=== PATIENT | female | born 1990 | race Caucasian/White ===

== ENCOUNTER → 2017-04-03 12:50 | Observation (INO) ==
[2017-04-03 09:44] LABS: Bilirubin,Urine Negative (Negative); Blood,Urine Negative (Negative); Clarity,Urine Cloudy (Clear); Color,Urine Dark Yellow (Yellow); Glucose,Urine (UA) Normal (Normal); Ketones,Urine Trace mg/dL (Negative); Leukocyte Esterase,Urine Small (Negative); Nitrite,Urine Negative (Negative); Protein,Urine 30 mg/dL (Neg-Trace); Specific Gravity,Urine 1.029 (1.010-1.025); Urobilinogen,Urine Normal (Normal)
[2017-04-03 09:46] LABS: Hyaline Casts,Urine Few per lpf (None-Few); Squamous Epithelial Cell,Urine Many per lpf (None-Few)
[2017-04-03 09:58] LABS: Bacteria,Urine Many per hpf (None-Few); RBC,Urine 0-3 per hpf (0-3)
[2017-04-03 09:59] LABS: Calcium Oxalate Crystals,Urine Present
[2017-04-03 10:58] LABS: Basophils % 0.3 %; Eosinophils # 0.1 K/mcL (0.0-0.6); Eosinophils % 0.5 %; Hematocrit 35.3 % (35.3-44.9); Hemoglobin 12.1 g/dL (11.5-15.4); Immature Granulocytes % 0.7 % (0-4); Lymphocytes # 2.4 K/mcL (0.6-4.6); Lymphocytes % 15.2 %; Mean Corpuscular HGB Conc 34.3 g/dL (31.6-35.5); Mean Corpuscular Hemoglobin 32.4 pg (28.0-33.3); Mean Corpuscular Volume 94.4 fL (83.0-100.0); Monocytes # 0.9 K/mcL (0.0-1.3); Monocytes % 5.5 %; Neutrophils # 12.2 K/mcL (1.6-8.9); Platelet Count 248 K/mcL (140-400); Red Blood Count 3.74 M/mcL (3.82-4.97); Red Cell Distribution Width 12.9 % (11.5-14.5); Segmented Neutrophils % 77.8 %
[2017-04-03 11:07] LABS: Alanine Aminotransferase 23 Units/L (0-55); Aspartate Amino Transferase 20 Units/L (5-34); BUN/Creatinine Ratio 11 (6-26); Blood Urea Nitrogen 7 mg/dL (7-20); Uric Acid 3.9 mg/dL (2.6-6.0); eGFR For African Americans > 60 (> 60); eGFR For Non-African Americans > 60 (> 60)
[2017-04-03 11:08] LABS: Lactate Dehydrogenase 158 Units/L (159-327)
[2017-04-03 11:37] LABS: Trichomonas DNA Not Detected (Not Detect)
[2017-04-03 11:38] LABS: Candida DNA Not Detected (Not Detect); Gardnerella DNA Not Detected (Not Detect)
--- NOTE | 2017-04-03 12:34 | Discharge Summary ---
Date of Encounter: 04/03/17 Time of Encounter: 10:30 - Discharge Diagnosis (1) Decreased movement Priority: Primary Status: Acute Comments: Patient states movement has been decreased since 5 in the evening yesterday. She denies vaginal bleeding, cramping, headache, epigastric pain, visual disturbances, and headache. She states she had a single gush of fluid yesterday, but has not had any vaginal discharge since. She state she has had a decreased appetite, but believes she is eating a drinking enough. She denies having difficulty obtaining food. She states she had pre-eclampsia in her previous that presented between 30 and 32 weeks. Urinalysis - dehydration NST - reactive for gestational age after IV hydration and po food intake Patient states movement has increased since she has been in. Discharge home with labor precautions, PIH precautions, and decreased movement precautions F/U in office with appointment scheduled tomorrow - Ultrasound ordered tomorrow for DARIO and presentation Qualifiers: Fetus number: single or unspecified fetus Trimester: third trimester Qualified Code(s): O36.8130 - Decreased movements, third trimester, not applicable or unspecified (2) 30 weeks gestation of Priority: Secondary Status: Acute Comments: Follow up with Dr Estevez tomorrow for 30 week . Added on ultrasound for presentation and DARIO for unable to palpate position (3) History of pre-eclampsia in prior , currently Priority: Secondary Status: Acute Comments: Increased protein on urinalysis. Pre-E labs WNL Normal blood pressures (4) Vaginal discharge Priority: Secondary Status: Acute Comments: Patient c/o moderate gush of clear fluid yesterday afternoon. Vaginosis panel WNL. - Discharge Medications Home Medications: Aspirin 81 mg PO DAILY 11/20/16 [History] Pnv with Ca,No.72/Iron/FA [Pnv Plus Multivit Tab] 1 tab PO DAILY [History] Zantac 75 1 / PO BID 04/03/17 [History] Allergies/Adverse Reactions: 3 Allergy/AdvReac Type Severity Reaction Status Date / Time No Known Allergies Allergy Verified 10/11/16 08:34 Data Procedures and tests throughout hospitalization: Laboratory Tests 04/03/17 04/03/17 04/03/17 09:36 10:40 10:40 WBC 15.7 H RBC 3.74 L Hgb 12.1 Hct 35.3 MCV 94.4 MCH 32.4 MCHC 34.3 RDW 12.9 Plt Count 248 MPV 11.0 Immature Gran % 0.7 Seg Neutrophils % 77.8 Lymphocytes % 15.2 Monocytes % 5.5 Eosinophils % 0.5 Basophils % 0.3 Neutrophils # 12.2 H Lymphocytes # 2.4 Monocytes # 0.9 Eosinophils # 0.1 Basophils # 0.0 BUN 7 Creatinine 0.64 Est GFR ( Amer) > 60 Est GFR (Non-Af Amer) > 60 BUN/Creatinine Ratio 11 Uric Acid 3.9 AST 20 ALT 23 Lactate Dehydrogenase 158 L Urine Color Dark Yellow Urine Clarity Cloudy A Urine pH 6.0 Ur Specific [place] 1.029 H Urine Protein 30 H Urine Glucose (UA) Normal Urine Ketones Trace H Urine Blood Negative Urine Nitrite Negative Urine Bilirubin Negative Urine Urobilinogen Normal Ur Leukocyte Esterase Small H Urine Microscopic RBC 0-3 Urine Microscopic WBC 5-15 H Ur Squamous Epith Cells Many H Calcium Oxalate Crystal Present Urine Bacteria Many H Hyaline Casts Few Ur Culture Indicated? YES A Chaya species DNA Gardnerella DNA Probe Trichomonas DNA Probe 04/03/17 10:40 WBC RBC Hgb Hct MCV MCH MCHC RDW Plt Count MPV Immature Gran % Seg Neutrophils % Lymphocytes % Monocytes % Eosinophils % Basophils % Neutrophils # Lymphocytes # Monocytes # Eosinophils # Basophils # BUN Creatinine Est GFR ( Amer) Est GFR (Non-Af Amer) BUN/Creatinine Ratio Uric Acid AST ALT Lactate Dehydrogenase Urine Color Urine Clarity Urine pH Ur Specific Shandon Urine Protein Urine Glucose (UA) Urine Ketones Urine Blood Urine Nitrite Urine Bilirubin Urine Urobilinogen Ur Leukocyte Esterase Urine Microscopic RBC Urine Microscopic WBC Ur Squamous Epith Cells Calcium Oxalate Crystal Urine Bacteria Hyaline Casts Ur Culture Indicated? Chaya species DNA Not Detected Gardnerella DNA Probe Not Detected Trichomonas DNA Probe Not Detected Labs on day of discharge: Labs from last 24 hours 04/03/17 04/03/17 04/03/17 10:40 10:40 10:40 WBC 15.7 H RBC 3.74 L Hgb 12.1 Hct 35.3 MCV 94.4 MCH 32.4 MCHC 34.3 RDW 12.9 Plt Count 248 MPV 11.0 Immature Gran % 0.7 Seg Neutrophils % 77.8 Lymphocytes % 15.2 Monocytes % 5.5 Eosinophils % 0.5 Basophils % 0.3 Neutrophils # 12.2 H Lymphocytes # 2.4 Monocytes # 0.9 Eosinophils # 0.1 Basophils # 0.0 BUN 7 Creatinine 0.64 Est GFR ( Amer) > 60 Est GFR (Non-Af Amer) > 60 BUN/Creatinine Ratio 11 Uric Acid 3.9 AST 20 ALT 23 Lactate Dehydrogenase 158 L Urine Color Urine Clarity Urine pH Ur Specific [place] Urine Protein Urine Glucose (UA) Urine Ketones Urine Blood Urine Nitrite Urine Bilirubin Urine Urobilinogen Ur Leukocyte Esterase Urine Microscopic RBC Urine Microscopic WBC Ur Squamous Epith Cells Calcium Oxalate Crystal Urine Bacteria Hyaline Casts Ur Culture Indicated? Chaya species DNA Not Detected Gardnerella DNA Probe Not Detected Trichomonas DNA Probe Not Detected 04/03/17 09:36 WBC RBC Hgb Hct MCV MCH MCHC RDW Plt Count MPV Immature Gran % Seg Neutrophils % Lymphocytes % Monocytes % Eosinophils % Basophils % Neutrophils # Lymphocytes # Monocytes # Eosinophils # Basophils # BUN Creatinine Est GFR ( Amer) Est GFR (Non-Af Amer) BUN/Creatinine Ratio Uric Acid AST ALT Lactate Dehydrogenase Urine Color Dark Yellow Urine Clarity Cloudy A Urine pH 6.0 Ur Specific [place] 1.029 H Urine Protein 30 H Urine Glucose (UA) Normal Urine Ketones Trace H Urine Blood Negative Urine Nitrite Negative Urine Bilirubin Negative Urine Urobilinogen Normal Ur Leukocyte Esterase Small H Urine Microscopic RBC 0-3 Urine Microscopic WBC 5-15 H Ur Squamous Epith Cells Many H Calcium Oxalate Crystal Present Urine Bacteria Many H Hyaline Casts Few Ur Culture Indicated? YES A Chaya species DNA Gardnerella DNA Probe Trichomonas DNA Probe Date of admission: 04/03/17 09:09 Discharging clinician: Kiersten Napoles Anticipated date of discharge: 04/03/17 - Patient Status Disposition: Home, Self-Care Condition: Good Functional capacity at discharge: independent ambulation Overall status at discharge: patient is back to baseline - Discharge Instructions Follow Up With: Rancho Estevez MD [Partnered Physician] - - Diet and Activity Activity: resume usual activities as tolerated Diet: regular diet Hospital Course DIRECTOR OF MANAGED SERVICES Time Attestation: Total time spent providing and/or coordinating discharge services: Exam - Constitutional General appearance IM: cooperative, A&O X 3, pleasant - Respiratory Respiratory exam: Present: CTAB - Cardiovascular Cardiovascular exam IM: Present: RRR, +S2 - GI/Abdominal GI/Abdominal exam IM: normal bowel sounds, soft - Additional comments: uterus appropriate for gestation and soft. FHTs 140 with moderate variability and 10 x 10 accels, no decels No contractions per monitor, patient report, or palpation. - Extremities Exam Extremities exam IM: Present: normal capillary refill, normal inspection, radial pulses palpable and symmetrical - Neurological Exam Neurological exam: alert, oriented X3, reflexes normal - VTE Reasons for not Prescribing Prophylaxis: Treatment not Indicated - Low risk for VTE
[~2017-04-03 12:50] MED LIST: Ringers Solution, Lactated 1,000 ML IVC ONE; Ringers Solution, Lactated 2,000 ML ONE
== END | disposition home or self-care (01) ==
LOC: 1NENULAB
PROVIDERS: ADMIT Obstetrics & Gynecology; ATTEND Obstetrics & Gynecology

== ENCOUNTER → 2017-05-02 13:27 | Observation (INO) ==
[2017-05-02 12:14] LABS: Basophils % 0.2 %; Eosinophils # 0.1 K/mcL (0.0-0.6); Eosinophils % 0.8 %; Hematocrit 34.3 % (35.3-44.9); Hemoglobin 11.8 g/dL (11.5-15.4); Immature Granulocytes % 0.7 % (0-4); Lymphocytes # 2.7 K/mcL (0.6-4.6); Lymphocytes % 16.5 %; Mean Corpuscular HGB Conc 34.4 g/dL (31.6-35.5); Mean Corpuscular Hemoglobin 31.8 pg (28.0-33.3); Mean Corpuscular Volume 92.5 fL (83.0-100.0); Mean Platelet Volume 10.7 fL (9.4-12.4); Monocytes % 6.2 %; Neutrophils # 12.1 K/mcL (1.6-8.9); Platelet Count 259 K/mcL (140-400); Red Blood Count 3.71 M/mcL (3.82-4.97); Red Cell Distribution Width 12.7 % (11.5-14.5); Segmented Neutrophils % 75.6 %
[2017-05-02 12:16] LABS: Amphetamine Screen,Urine Negative ng/mL (Cutoff=1000); Barbiturate Screen,Urine Negative ng/mL (Cutoff=200); Benzodiazepines Screen,Urine Negative ng/mL (Cutoff=200); Cannabinoid Screen,Urine Negative ng/mL (Cutoff = 50); Cocaine Screen,Urine Negative ng/mL (Cutoff= 300); Opiate Screen,Urine Negative ng/mL (Cutoff=300); Phencyclidine Screen,Urine Negative ng/mL (Cutoff=25)
[2017-05-02 12:18] LABS: Protein/Creatinine Ratio,Urine 0.13 mg/mg (0-0.20)
[2017-05-02 12:24] LABS: Alanine Aminotransferase 14 Units/L (0-55); Aspartate Amino Transferase 13 Units/L (5-34); BUN/Creatinine Ratio 10 (6-26); Blood Urea Nitrogen 6 mg/dL (7-20); Lactate Dehydrogenase 123 Units/L (159-327); Uric Acid 3.9 mg/dL (2.6-6.0); eGFR For African Americans > 60 (> 60); eGFR For Non-African Americans > 60 (> 60)
--- NOTE | 2017-05-02 12:59 | OB/GYN Progress Note ---
Date of Encounter: 05/02/17 Time of Encounter: 12:52 - Assessment and Plan (1) 34 weeks gestation of Current Visit: Yes Status: Acute (2) Headache in , antepartum Current Visit: Yes Status: Acute PIH labs negative, symptoms are improving. Discussed PIH precautions with patient, will discharge home with fiorecet, and when to return to [facility] or call provider instructions. Subjective - Subjective Interval history: 34+2 Pt sent from office for PIH evaluation. Normotensive, but has had a headache, blurry vision and epigastric pain since last night. Pt states headache has improved since being in triage and has no more epigastric pain. Reports good movement, denies, vaginal bleeding or leaking of fluid. Antepartum ROS: new complaints, movement normal, no loss of fluid, no vaginal bleeding, no contractions Objective - Vital Signs Vital Signs: Intake and Output 05/01/17 05/02/17 05/02/17 23:59 07:59 15:59 Other: Weight 119.522 kg Patient Weight 05/02/17 23:59 Weight 119.522 kg - Exam FHR: auscultation normal FHR comments: Baseline 135 Auscultation: bilateral: normal Abdomen: Present: soft, gravid Uterus: Present: normal Comments: +1 DTR, -clonus - Labs Labs: Abnormal lab results WBC 16.0 K/mcL (4.3-11.1) H 05/02/17 11:55 RBC 3.71 M/mcL (3.82-4.97) L 05/02/17 11:55 Hct 34.3 % (35.3-44.9) L 05/02/17 11:55 Neutrophils # 12.1 K/mcL (1.6-8.9) H 05/02/17 11:55 BUN 6 mg/dL (7-20) L 05/02/17 11:55 Lactate Dehydrogenase 123 Units/L (159-327) L 05/02/17 11:55
== END | disposition home or self-care (01) ==
LOC: 1NENULAB
PROVIDERS: ADMIT Obstetrics & Gynecology; ATTEND Obstetrics & Gynecology

== ENCOUNTER → 2017-06-02 21:48 | Observation (INO) ==
--- NOTE | 2017-06-02 21:54 | Discharge Summary ---
Date of Encounter: 06/02/17 Time of Encounter: 21:54 - Discharge Diagnosis (1) 38 weeks gestation of Priority: Primary Status: Acute Comments: admitted for labor evaluation false labor (2) NST (non-stress test) reactive on surveillance Priority: Secondary Status: Acute Comments: baseline 145 bpm moderate variability +15x15 accels no decels noted. No contractions - Discharge Medications Home Medications: Aspirin 81 mg PO DAILY 11/20/16 [History] Pnv with Ca,No.72/Iron/FA [Pnv Plus Multivit Tab] 1 tab PO DAILY [History] Zantac 75 150 mg PO BID 04/03/17 [History] Colace 06/02/17 [History] Allergies/Adverse Reactions: 3 Allergy/AdvReac Type Severity Reaction Status Date / Time No Known Allergies Allergy Verified 06/02/17 21:34 Date of admission: 06/02/17 20:03 Discharging clinician: Terri Booth Anticipated date of discharge: 06/02/17 - Patient Status Disposition: Home, Self-Care Condition: Good Functional capacity at discharge: independent ambulation - Discharge Instructions Follow Up With: Rancho Estevez MD [Partnered Physician] - Additional Instructions: LABOR AND DELIVERY DISCHARGE INSTRUCTIONS Signs and Symptoms to be Reported to your Doctor Immediately: * Sudden gush, continuous or intermittent lead of fluid from vagina (note the time of gush and color of fluid) * Onset of bright red vaginal bleeding with or without pain (if you had a vaginal exam during this visit you may notice some dark red spotting. This is normal.) * Contractions that are 5 minutes apart (from the beginning of one contraction to the beginning of the next) and last 45-60 seonds; contractions that you can no longer walk, talk or laugh through. * A change in the baby's activity. This could be an increase or decrease in activity. * Severe headache which does not go away with tylenol. * Sudden swelling in the face, hands, arms and/or legs. * Upper abdominal pain - sometimes associated with heartburn or nausea and is not relieved by Maalox, Mylanta or Tums. * Kick Counts __ One hour after a meal, lay down on one side in a quiet place. Count the number of time the baby moves during an hour. If less than 6 movements, notify your physician Diet: *Force fluids, 8 to 10 tall glasses of fluid per day - may include popsicles and jello *Limit caffeine - this includes chocolate, coffee, tea, any soft drink containing such as all penelope, Rex Yellow and Mountain Dew Follow-up with on 06/03/17 as scheduled. 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 Time Attestation: Total time spent providing and/or coordinating discharge services: Time Spent: Less than 30 minutes Exam - Other Additional findings: Patient seen and assessed by RN. FHR 145 bpm moderate variability +15x15 accels no decels noted. Cat. 1 tracing. No contractions noted. Reactive nst SVE per 1cm with no change after 1 hour of monitoring. - VTE Reasons for not Prescribing Prophylaxis: Treatment not Indicated - Low risk for VTE
[2017-06-02 22:28] LABS: Amphetamine Screen,Urine Negative ng/mL (Cutoff=1000); Barbiturate Screen,Urine Negative ng/mL (Cutoff=200); Benzodiazepines Screen,Urine Negative ng/mL (Cutoff=200); Cannabinoid Screen,Urine Negative ng/mL (Cutoff = 50); Cocaine Screen,Urine Negative ng/mL (Cutoff= 300); Opiate Screen,Urine Negative ng/mL (Cutoff=300); Phencyclidine Screen,Urine Negative ng/mL (Cutoff=25)
== END | disposition home or self-care (01) ==
LOC: 1NENULAB
PROVIDERS: ADMIT Obstetrics & Gynecology; ATTEND Obstetrics & Gynecology

== ENCOUNTER 2017-06-07 07:49 | Inpatient (IN) ==
[2017-06-07] MEDS ORDERED: FLUARIX QUAD 2017-18 36MOS UP/PF 0.5 ML SYRINGE IM ONE (08:33)
[2017-06-07] MEDS ORDERED: Famotidine 20 MG/2 ML VIAL IVP PRN (08:47)
[2017-06-07] MEDS ORDERED: Metoclopramide 10 MG/2 ML VIAL IVP PRN (08:47)
[2017-06-07] MEDS ORDERED: Naloxone 0.4 MG/ML INJ IVP PRN (08:47)
[2017-06-07 08:56] LABS: Basophils % 0.2 %; Eosinophils # 0.1 K/mcL (0.0-0.6); Eosinophils % 0.8 %; Hematocrit 33.1 % (35.3-44.9); Hemoglobin 11.9 g/dL (11.5-15.4); Immature Granulocytes % 0.6 % (0-4); Immature Platelets 5.6 % (1.1-6.1); Lymphocytes # 2.7 K/mcL (0.6-4.6); Lymphocytes % 20.9 %; Mean Corpuscular Hemoglobin 33.3 pg (28.0-33.3); Mean Corpuscular Volume 92.7 fL (83.0-100.0); Mean Platelet Volume 11.2 fL (9.4-12.4); Monocytes # 0.5 K/mcL (0.0-1.3); Monocytes % 4.1 %; Neutrophils # 9.3 K/mcL (1.6-8.9); Platelet Count 253 K/mcL (140-400); Red Blood Count 3.57 M/mcL (3.82-4.97); Red Cell Distribution Width 13.2 % (11.5-14.5); Segmented Neutrophils % 73.4 %
[2017-06-07] MEDS: Ringers Solution, Lactated 1,000 ML IVC SCH ×2 (09:00→16:33)
[2017-06-07 09:09] LABS: Amphetamine Screen,Urine Negative ng/mL (Cutoff=1000); Barbiturate Screen,Urine Negative ng/mL (Cutoff=200); Benzodiazepines Screen,Urine Negative ng/mL (Cutoff=200); Cannabinoid Screen,Urine Negative ng/mL (Cutoff = 50); Cocaine Screen,Urine Negative ng/mL (Cutoff= 300); Opiate Screen,Urine Negative ng/mL (Cutoff=300); Phencyclidine Screen,Urine Negative ng/mL (Cutoff=25)
[2017-06-07] MEDS ORDERED: miSOPROStol 25 MCG TABLET VG PRN (09:39)
--- NOTE | 2017-06-07 09:43 | OB/GYN History & Physical ---
Date of Encounter: 06/07/17 Time of Encounter: 09:41 Assessment and Plan (1) 39 weeks gestation of Current visit: Yes Status: Acute Patient with history of preeclampsia in previous now full-term C with induction of labor with Cytotec. Currently blood pressures are good and she has no signs or symptoms of preeclampsia (2) History of pre-eclampsia in prior , currently Current visit: No Status: Acute History of Present Illness Chief complaint: Here for induction HPI: Ms. Quiroz is a 27 year old female admitted 2 para 1 female at 39-3/7 weeks gestation presents for induction of labor. risk for incompetent by hyperemesis early in and she did have tachycardia which are related to dehydration. Of note patient does have history of prior delivery at 32 weeks for preeclampsia. Arrival she reports irregular contractions no bleeding or leakage of fluid Past Med Surg Social Fam HX - Past Medical History Source: patient, old records reviewed Medical history: no medical history, other (Knee problems) Psychiatric history: no psych history - Past Surgical History Surgical History: other - Social History Smoking Status: Former smoker Smokeless Tobacco Status: No Alcohol use: none Drug use: none - Family History Father Adopted: No Living Status: Still Living Hx Family Cardiac Disorders: Yes (htn) Hx Family Respiratory Disorders: No Hx Family Cancer: No Hx Family GI Disorders: No Hx Family Genitourinary Disorders: No Hx Family Endocrine Disorder: No Hx Family Musculoskeletal Disorders: No Hx Family Neuromuscular Disorders: No Hx Family Neurologic Disorders: No Hx Family HEENT Disorders: No Hx Family Autoimmune Disorders: No Hx Family Reproductive Disorders: No Hx Family Psychosocial Disorders: No Hx Family Medical Disorders: No Obstetrical History - Pregnancies : 2 Medications and Allergies Aspirin 81 mg PO DAILY 11/20/16 [History] Pnv with Ca,No.72/Iron/FA [Pnv Plus Multivit Tab] 1 tab PO DAILY [History] Zantac 75 150 mg PO DAILY 04/03/17 [History] Colace 1 tab PO DAILY 06/02/17 [History] 3 Allergy/AdvReac Type Severity Reaction Status Date / Time No Known Allergies Allergy Verified 06/07/17 08:31 Exam - Constitutional Constitutional: well developed, well nourished, no acute distress - HEENT HEENT: EOMI, PERRL - Neck Neck exam: full ROM - Lungs Respiratory exam: CTAB - Cardiovascular Cardiovascular exam: RRR - Abdomen Abdomen: Present: bowel sounds normal, gravid - Extremities Extremities exam: full ROM Deep Tendon Reflex Grade: 2+ Normal - Cervix Dilation: 2 Effacement: 70 Station: -2 Results Result Diagrams: 06/07/17 08:25 Abnormal lab results WBC 12.7 K/mcL (4.3-11.1) H 06/07/17 08:25 RBC 3.57 M/mcL (3.82-4.97) L 06/07/17 08:25 Hct 33.1 % (35.3-44.9) L 06/07/17 08:25 MCHC 36.0 g/dL (31.6-35.5) H 06/07/17 08:25 Neutrophils # 9.3 K/mcL (1.6-8.9) H 06/07/17 08:25 All other labs normal. - VTE Reasons for not Prescribing Prophylaxis: Treatment not Indicated - Low risk for VTE
[2017-06-07] MEDS ORDERED: *HR* Nalbuphine 20 MG/ML AMPUL IVP PRN (14:09)
--- NOTE | 2017-06-07 14:11 | OB Labor Progress Note ---
Date of Encounter: 06/07/17 Time of Encounter: 14:09 Labor Progress Note - Subjective Subjective: Pt reports freq uc's that are getting stronger. - Cervix Cervix: 3/80/-2 - Heart Tones Heart Tones: RNST - [place]: uc's q 3 min - Interventions Interventions: AROM clear - Plan Plan: Expect
[2017-06-07] MEDS ORDERED: Ondansetron 4 MG/2 ML VIAL IVP PRN (15:39)
[2017-06-07] MEDS ORDERED: Epidural Premix (fent/bupiv) 110 ML EP ONE (17:52)
--- NOTE | 2017-06-07 19:07 | Anesthesia Evaluation PreOp ---
Date of Encounter: 06/07/17 Time of Encounter: 17:30 - Past History Planned Operation: manuela Cardiac History: Denies any Significant Hx Pulmonary History: Denies Any Significant HX PRESSURE TEST OPERATOR History: Denies Any Significant HX Other Medical History: Denies Any Significant HX Anesthesia History: No Prior Anesthetic Complications : Yes Test: Positive Alcohol Use: none Drug use: none Medications and Allergies Aspirin 81 mg PO DAILY 11/20/16 [History] Pnv with Ca,No.72/Iron/FA [Pnv Plus Multivit Tab] 1 tab PO DAILY [History] Zantac 75 150 mg PO DAILY 04/03/17 [History] Colace 1 tab PO DAILY 06/02/17 [History] 3 Allergy/AdvReac Type Severity Reaction Status Date / Time No Known Allergies Allergy Verified 06/07/17 08:31 - Meds/Allergy Pre-op Review Medications Reviewed: Yes Allergies Reviewed: Yes Beta Blockers on Current Med List: No Anesthesia Results - Labs 06/07/17 08:25 Anesthesia Exam - HEENT Pupil (Motor): Pupils equal Mallampati: I Teeth: Normal Oral Opening: Greater than 3 - PRESSURE TEST OPERATOR LOC: Oriented PRESSURE TEST OPERATOR Motor: Normal RUE, Normal LUE, Normal RLE, Normal LLE, Normal Face PRESSURE TEST OPERATOR Sensory: Normal: RUE, LUE, RLE, LLE, Face - Cardiac JVD: No Carotid Bruit: No - Pulmonary Breath Sounds: bilateral Clear Respiratory Effort: Symmetrical Anesthesia Assess/Plan ASA Score: 2 Modified Calvin Scale for Level of Consciousness: Cooperative, oriented, and tranquil Anesthetic Plan: Regional Autologous Blood: No Monitoring Plan: Standard Monitors
--- NOTE | 2017-06-07 19:08 | Anesthesia Procedures ---
Date of Encounter: 06/07/17 Time of Encounter: 17:30 Procedures: Anesthesia - Epidural/Spinal Patient ID/Chart reviewed: Yes Patient examined: Yes OB Eval: Gestational age: 39.3 OB Eval: : 2 OB Eval: Hx Para: 1 OB Eval: Dilated at (cm): 5 OB Eval: Contractions: Non-stressed pattern Consent Obtained: Yes Supplemental Oxygen: None/Room Air Site Prep: Aseptic Technique, Sterile prep and drape, Povidone-Iodine 1% Patient position: upright Local Anesthetic: Lidocaine 1% Amount of Local Anesthetic used: 3 Touhy Needle Gauge: 18 Touhy Needle Depth (cm): 5 Catheter Depth at Skin (cm): 7 Test Dose (1.5% Lido + Epi): Volume given (mls): 3 Test Dose Result: Negative Loading Dose Administered: Thru Catheter Infusion Rate (mls/hr): [address]: Tegaderm, Tape Interspace Used: L4-L5 Loss of Resistance (BALTA): Yes Blood: No CSF: No Paresthesia: No Vitals + FHT's: stable
[2017-06-07] MEDS ORDERED: Epidural Premix (fent/bupiv) 110 ML EP SCH (19:15)
[2017-06-07] MEDS ORDERED: Oxytocin 20 units/ LR 1000 mL 20 UNIT/1,000 ML BAG IVC SCH (20:00)
[2017-06-07] MEDS ORDERED: Oxytocin 20 units/ LR 1000 mL 20 UNIT/1,000 ML BAG IVC ONE (20:06)
[2017-06-07] MEDS ORDERED: *HR* FentaNYL (PF) 100 MCG/2 ML VIAL ONE (22:50)
[2017-06-08] MEDS ORDERED: Lidocaine 1% 20 ML MDV ONE (00:37)
--- NOTE | 2017-06-08 01:03 | OB/GYN Procedure Note ---
Delivery - Delivery Date: 06/08/17 Provider: Rancho Estevez Intrapartum events: none Delivery induction: misoprostol Delivery monitor: external FHT, internal uterine Anesthesia: local, epidural Estimated Blood Loss: 400 - Infant (s) Infant A Delivery Date: 06/08/17 Delivery Time: 00:33 Presentation: vertex Position: JOSE Route of delivery: Gender: Female Viability: Viable Pounds: 7 Ounces: 4 at 1 minute: 8 at 5 mins: 9 Shoulder Dystocia: not encountered Specimens collected: cord blood Placenta: spontaneous Cord: nuchal cord, 3 umbilical vessels - Repair Episiotomy: none Laceration Description: Labial (right,), Superficial - Complications Delivery complications: none - Disposition Mom disposition: stable in LDR disposition: stable in LDR - Comments Comments: Pt s/p of liveborn female through nuchal cord. Cord then reduced. Spontaneous delivery of normal placenta that appeared to be intact and had 3 vc. Rt labial tear and small superficial perineal tear repaired under epidural and local with interrupted 3-0 vicryl. Pt did have some uterine atony that responded to fundal massage and pitocin bolus. EBL 400 CC.
[2017-06-08] MEDS ORDERED: Oxytocin 20 units/ LR 1000 mL 20 UNIT/1,000 ML BAG IVC SCH (02:42)
[2017-06-08] MEDS ORDERED: Rho Immune Globulin 1,500 UNIT SYRINGE IM PRN (02:42)
[2017-06-08] MEDS ORDERED: Measles/Mumps/Rubella Vacc 0.5 ML VIAL SQ PRN (02:42)
[2017-06-08] MEDS: Ibuprofen 600 MG TABLET PO PRN ×3 (03:38→18:33)
[2017-06-08 06:17] LABS: Basophils % 0.2 %; Hematocrit 28.8 % (35.3-44.9); Immature Granulocytes % 0.7 % (0-4); Lymphocytes # 1.7 K/mcL (0.6-4.6); Lymphocytes % 7.2 %; Mean Corpuscular HGB Conc 35.1 g/dL (31.6-35.5); Mean Corpuscular Hemoglobin 32.6 pg (28.0-33.3); Mean Corpuscular Volume 92.9 fL (83.0-100.0); Mean Platelet Volume 11.2 fL (9.4-12.4); Monocytes % 4.4 %; Neutrophils # 20.9 K/mcL (1.6-8.9); Platelet Count 226 K/mcL (140-400); Red Cell Distribution Width 13.2 % (11.5-14.5); Segmented Neutrophils % 87.5 %
[2017-06-08 06:18] LABS: Basophils # 0.1 K/mcL (0.0-0.2); Hemoglobin 10.1 g/dL (11.5-15.4); Monocytes # 1.1 K/mcL (0.0-1.3)
[2017-06-08] MEDS ORDERED: Benzocaine/Menthol 56 GM AEROSOL SPRAY TP PRN (07:45)
[2017-06-08] MEDS: Prenatal Vit/FA 1 EACH TABLET PO SCH (07:51)
[2017-06-08] MEDS: Acetaminophen 325 MG TABLET PO PRN ×2 (14:35→20:06)
--- NOTE | 2017-06-09 07:47 | Discharge Summary ---
Date of Encounter: 06/09/17 Time of Encounter: 07:45 - Discharge Diagnosis (1) Vaginal delivery Priority: Primary Status: Acute Comments: Continue routine care discharge home today follow up with Dr. Estevez in 4-6 weeks - Discharge Medications Home Medications: Pnv with Ca,No.72/Iron/FA [Pnv Plus Multivit Tab] 1 tab PO DAILY [History] Acetaminophen [Tylenol] 650 mg PO Q6HR PRN tablet 06/09/17 [Rx] Benzocaine/Menthol Morris [Dermoplast Morris] 1 appl TP QID PRN aerosol 06/09/17 [Rx] Docusate [Colace] 100 mg PO BID capsule 06/09/17 [Rx] Ferrous Sulfate 325 mg PO DAILY tablet 06/09/17 [Rx] Ibuprofen [Motrin] 600 mg PO Q6HR PRN tablet 06/09/17 [Rx] Allergies/Adverse Reactions: 3 Allergy/AdvReac Type Severity Reaction Status Date / Time No Known Allergies Allergy Verified 06/07/17 08:31 Data Procedures and tests throughout hospitalization: Laboratory Tests 06/07/17 06/07/17 06/08/17 08:25 08:45 05:57 WBC 12.7 H 23.9 H D RBC 3.57 L 3.10 L Hgb 11.9 10.1 L D Hct 33.1 L 28.8 L MCV 92.7 92.9 MCH 33.3 32.6 MCHC 36.0 H 35.1 RDW 13.2 13.2 Plt Count 253 226 MPV 11.2 11.2 Immature Gran % 0.6 0.7 Seg Neutrophils % 73.4 87.5 Lymphocytes % 20.9 7.2 Monocytes % 4.1 4.4 Eosinophils % 0.8 0.0 Basophils % 0.2 0.2 Neutrophils # 9.3 H 20.9 H Lymphocytes # 2.7 1.7 Monocytes # 0.5 1.1 Eosinophils # 0.1 0.0 Basophils # 0.0 0.1 Immature Plt Fraction 5.6 Urine Opiates Screen Negative Ur Barbiturates Screen Negative Ur Phencyclidine Scrn Negative Ur Amphetamines Screen Negative U Benzodiazepines Scrn Negative Urine Cocaine Screen Negative U Marijuana (THC) Screen Negative Date of admission: 06/07/17 07:49 Primary care physician: Dre Andrade, Consults: 06/08/17 02:42 Consult to Literacy Consultant [CONS] Routine Comment: Vaginal delivery, consult needed Discharging clinician: Terri Booth Anticipated date of discharge: 06/09/17 - Patient Status Disposition: Home, Self-Care Condition: Good Functional capacity at discharge: independent ambulation - Discharge Instructions Follow Up With: Dre Andrade DO [Primary Care Provider] - Rancho Estevez MD [Partnered Physician] - - Diet and Activity Activity: increase activity as tolerated Diet: regular diet Hospital Course Delivery: Episiotomy: none Other procedures: none complications: none Discharge diagnosis: IUP at term delivered baby: female (bottle feeding) Time Attestation: Total time spent providing and/or coordinating discharge services: Time Spent: Less than 30 minutes Exam - Constitutional Vitals: Temp Pulse Resp BP Pulse Ox 97.8 F 88 16 111/74 99 06/08/17 19:53 06/08/17 19:53 06/08/17 19:53 06/08/17 19:53 06/08/17 19:53 General appearance IM: A&O X 3, pleasant, answers questions appropriately - Respiratory Respiratory exam: Present: CTAB - Cardiovascular Cardiovascular exam IM: Present: RRR, +S1, +S2 - GI/Abdominal GI/Abdominal exam IM: normal bowel sounds - Uterine Tone: Firm Uterus Position: 1 Finger Below Umbilicus, Midline - Extremities Exam Extremities exam IM: Present: full ROM, normal capillary refill, normal inspection - Neurological Exam Neurological exam: alert, oriented X3, reflexes normal
[2017-06-09] MEDS: Prenatal Vit/FA 1 EACH TABLET PO SCH (08:01)
[2017-06-09] MEDS: Ibuprofen 600 MG TABLET PO PRN (08:02)
[2017-06-09 08:09] VITALS: BP 109/63
[2017-06-09] MEDS ORDERED: FLUARIX QUAD 2017-18 36MOS UP/PF 0.5 ML SYRINGE IM ONE (09:24)
== END 2017-06-09 11:43 | disposition home or self-care (01) | DRG 775 ==
LOC: 1NENULAB 07:49 → 1NENUOBS 06-08 02:49
PROVIDERS: ADMIT Obstetrics & Gynecology; ATTEND Obstetrics & Gynecology

== ENCOUNTER 2017-12-12 16:33 | Inpatient (IN) ==
--- NOTE | 2017-12-12 16:41 | Emergency Department Note ---
Disposition Clinical Impression: Cholecystitis Abdominal pain Qualifiers: Abdominal location: right upper quadrant Qualified Code(s): R10.11 - Right upper quadrant pain Disposition: Admitted As Inpatient Condition: Fair Time of Disposition: 17:37 Abdominal Pain HPI - General Chief Complaint: ED Abdominal Pain Stated Complaint: "abnormal ultrasound results" sent skocik Time Seen by Provider: 12/12/17 16:40 Source: patient, family Mode of arrival: private vehicle Limitations: no limitations Nursing Notes Reviewed: Yes Vital Signs Reviewed: Yes - History of Present Illness Pt Subjective Complaint: abdominal pain Onset (ago): day(s) (5) Consistency: constant Location: RUQ Pain Severity: moderate, severe Pain Scale: 8 Quality: aching Improves with: nothing Worsens with: movement, other ("anything") Context: other (No Abx his week. No hx of similar episode) Associated symptoms: Reports: nausea, vomiting (x1 NBNB), diarrhea (non-bloody) , chills, anorexia (last meal yesterday lunch time. ). Denies: fever, hematemesis, hematochezia, melena Treatments prior to arrival: other (Motrin) - Related Data LMP Date: 11/28/17 Home Medications Medication Instructions Recorded Confirmed Norgestimate-Ethinyl Estradiol 1 tab PO DAILY 12/12/17 12/12/17 [Sprintec 28 Day Tablet] Allergies Allergy/AdvReac Type Severity Reaction Status Date / Time No Known Allergies Allergy Verified 06/07/17 08:31 Constitutional: Reports: chills, weakness. Denies: fever Cardiovascular: Denies: chest pain, palpitations Respiratory: Denies: cough, dyspnea Gastrointestinal: Reports: as per HPI, abdominal pain, nausea, vomiting, diarrhea. 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 Absent: wheezes, accessory muscle use - Cardiovascular Cardiovascular exam: Present: normal rhythm, tachycardia, +S1, +S2 - Abdominal Exam Abdominal exam: Present: soft, tenderness (RUQ), normal bowel sounds, Wilkinson's sign. Absent: guarding, rebound, rigidity - Extremities Exam Extremities exam: Present: normal capillary refill. Absent: tenderness, pedal edema - Neurological Exam Neurological exam: Present: alert, oriented X3 - Skin Skin exam: Present: warm, dry, intact Course - Reevaluation(s) Reevaluation #1: 18:40 - Patient readying for transfer as inpatient. Calm disposition. No acute respiratory distress. States she has received pain medication. Thanks ED staff. - Consultations Consultation #1: 17:[address] Brooke - Reviewed U/S and exam findings. Recommends IV Abx at this time. Awaiting labs until further recommendations. Consultation #2: 18:00 Dr. Brooke at bedside. Attending discussed labs with surgery. Accepts admission. Vital Signs Temperature 98.6 F 12/12/17 16:36 Pulse Rate 118 12/12/17 16:36 Respiratory Rate 18 12/12/17 16:36 Blood Pressure 138/91 12/12/17 16:36 O2 Sat by Pulse Oximetry 98 12/12/17 16:36 Temperature 98.6 F 12/12/17 16:36 Pulse Rate 118 12/12/17 16:36 Respiratory Rate 18 12/12/17 16:36 Blood Pressure 138/91 12/12/17 16:36 O2 Sat by Pulse Oximetry 98 12/12/17 16:36 Oxygen Delivery Oxygen Delivery Room Air Abdominal Pain - MDM Narrative Medical decision making narrative: 27 F with RUQ abdominal pain x 5 days, presenting following U/S concerning for emphysematous cholecystitis. CBC, BMP, Hepatic panel, T&S, lactic acid. IV fluids in ED. Empiric antibiotic therapy with coverage for anerobes. Abx Selection, per surgery recommendation of cefoxitin. Close monitoring of vitals. Patient NPO in ED. CXR given clinical presentation. Surgery consultation accepts admission. - Medical Records Medical records reviewed: Yes I reviewed the patient's medical records. - Lab Data Lab results reviewed: Yes I reviewed the patient's lab results. Result diagrams: 12/12/17 16:51 12/12/17 18:13 Lab Results 12/12/17 12/12/17 12/12/17 Range/Units 16:51 17:23 17:24 WBC 10.0 (4.3-11.1) K/mcL RBC 4.39 (3.82-4.97) M/mcL Hgb 13.5 (11.5-15.4) g/dL Hct 39.0 (35.3-44.9) % MCV 88.8 (83.0-100.0) fL MCH 30.8 (28.0-33.3) pg MCHC 34.6 (31.6-35.5) g/dL RDW 13.1 (11.5-14.5) % Plt Count 279 (140-400) K/mcL MPV 11.4 (9.4-12.4) fL Immature Gran % 0.2 (0-4) % Seg Neutrophils % 63.0 % Lymphocytes % 30.5 % Monocytes % 3.9 % Eosinophils % 2.0 % Basophils % 0.4 % Neutrophils # 6.3 (1.6-8.9) K/mcL Lymphocytes # 3.0 (0.6-4.6) K/mcL Monocytes # 0.4 (0.0-1.3) K/mcL Eosinophils # 0.2 (0.0-0.6) K/mcL Basophils # 0.0 (0.0-0.2) K/mcL Sodium (136-145) mEq/L Potassium (3.5-5.1) mEq/L Chloride (98-107) mEq/L Carbon Dioxide (23-29) mEq/L BUN (6-20) mg/dL Creatinine (0.60-1.20) mg/dL Est GFR ( Amer) (> 60) Est GFR (Non-Af Amer) (> 60) BUN/Creatinine Ratio (6-26) Glucose (70-105) mg/dL Calculated Osmolality (280-300) Lactic Acid 0.8 (0.5-2.2) mmol/L Calcium (8.6-10.3) mg/dL Total Bilirubin (0.3-1.0) mg/dL Direct Bilirubin (0.0-0.2) mg/dL Indirect Bilirubin (0.0-1.2) mg/dL AST (13-39) Units/L ALT (7-52) Units/L Alkaline Phosphatase (34-104) Units/L Serum Total Protein (6.4-8.9) g/dL Albumin (3.5-5.7) g/dL Globulin (2.4-3.5) g/dL Albumin/Globulin Ratio (1.1-2.2) Blood Type O POSITIVE Antibody Screen NEGATIVE 12/12/17 Range/Units 18:13 WBC (4.3-11.1) K/mcL RBC (3.82-4.97) M/mcL Hgb (11.5-15.4) g/dL Hct (35.3-44.9) % MCV (83.0-100.0) fL MCH (28.0-33.3) pg MCHC (31.6-35.5) g/dL RDW (11.5-14.5) % Plt Count (140-400) K/mcL MPV (9.4-12.4) fL Immature Gran % (0-4) % Seg Neutrophils % % Lymphocytes % % Monocytes % % Eosinophils % % Basophils % % Neutrophils # (1.6-8.9) K/mcL Lymphocytes # (0.6-4.6) K/mcL Monocytes # (0.0-1.3) K/mcL Eosinophils # (0.0-0.6) K/mcL Basophils # (0.0-0.2) K/mcL Sodium 137 (136-145) mEq/L Potassium 4.3 (3.5-5.1) mEq/L Chloride 109 H (98-107) mEq/L Carbon Dioxide 22 L (23-29) mEq/L BUN 11 (6-20) mg/dL Creatinine 0.88 (0.60-1.20) mg/dL Est GFR ( Amer) > 60 (> 60) Est GFR (Non-Af Amer) > 60 (> 60) BUN/Creatinine Ratio 13 (6-26) Glucose 85 (70-105) mg/dL Calculated Osmolality 283 (280-300) Lactic Acid (0.5-2.2) mmol/L Calcium 8.9 (8.6-10.3) mg/dL Total Bilirubin 0.4 (0.3-1.0) mg/dL Direct Bilirubin 0.2 (0.0-0.2) mg/dL Indirect Bilirubin 0.2 (0.0-1.2) mg/dL AST 14 (13-39) Units/L ALT 14 (7-52) Units/L Alkaline Phosphatase 72 (34-104) Units/L Serum Total Protein 6.4 (6.4-8.9) g/dL Albumin 4.0 (3.5-5.7) g/dL Globulin 2.4 (2.4-3.5) g/dL Albumin/Globulin Ratio 1.7 (1.1-2.2) Blood Type Antibody Screen - Radiology Data Radiology results reviewed: Yes I reviewed the patient's radiology results. RIGHT UPPER QUADRANT ULTRASOUND 12/12/2017 3:39 pm COMPARISON: Ultrasound on 12/11/2017. HISTORY: ORDERING SYSTEM PROVIDED HISTORY: RUQ PAIN Right upper quadrant pain for 5 days. Initial evaluation. FINDINGS: LIVER: The liver demonstrates normal echogenicity without evidence of a sonographic mass lesion. BILIARY SYSTEM: The gallbladder has sludge and stones. There are areas of shadowing noted along the thickened wall of the gallbladder which could represent emphysematous cholecystitis. Dedicated CT is recommended for further evaluation. No pericholecystic fluid. The gallbladder wall measures 6 mm. Common bile duct is within normal limits measuring 4 mm. RIGHT KIDNEY: The right kidney is grossly unremarkable without evidence of hydronephrosis. PANCREAS: Visualized portions of the pancreas are unremarkable. OTHER: No evidence of right upper quadrant ascites. US/US abdomen limited IMPRESSION: 1. Numerous gallstones and biliary sludge with an associated thickened gallbladder wall. There is dirty shadowing along the gallbladder wall, concerning for emphysematous cholecystitis. Dedicated CT of the abdomen and pelvis without contrast is recommended for further evaluation. D/ / 12/12/2017 16:00:29 Kannan Du MD / bcagill Interpreting Provider: Kannan Du MD Impressions Chest X-Ray 12/12/17 17:21 IMPRESSION: No acute process. D/ / Don Hurd MD / Don Hurd MD Interpreting Provider: Don Hurd MD Attestation Statement - Attestation Attestation: I examined this patient and my medical decision-making was reviewed with the Resident Physician. I agree with the documented findings, disposition and treatment plan as described except to the extent set forth below.
[2017-12-12] MEDS ORDERED: 0.9 % Sodium Chloride 1,000 ML IVC ONE (16:46)
[2017-12-12] MEDS ORDERED: cefOXitin 2,000 MG in Water for inj. (sterile) 20 ML 10 ML IVP ONE (17:03)
[2017-12-12 17:06] LABS: Basophils % 0.4 %; Eosinophils # 0.2 K/mcL (0.0-0.6); Hemoglobin 13.5 g/dL (11.5-15.4); Immature Granulocytes % 0.2 % (0-4); Lymphocytes % 30.5 %; Mean Corpuscular HGB Conc 34.6 g/dL (31.6-35.5); Mean Corpuscular Hemoglobin 30.8 pg (28.0-33.3); Mean Corpuscular Volume 88.8 fL (83.0-100.0); Mean Platelet Volume 11.4 fL (9.4-12.4); Monocytes # 0.4 K/mcL (0.0-1.3); Monocytes % 3.9 %; Neutrophils # 6.3 K/mcL (1.6-8.9); Platelet Count 279 K/mcL (140-400); Red Blood Count 4.39 M/mcL (3.82-4.97); Red Cell Distribution Width 13.1 % (11.5-14.5)
--- NOTE | 2017-12-12 17:41 | Emergency Department Note ---
Disposition Clinical Impression: Cholecystitis, Abdominal pain Disposition: Admitted As Inpatient Condition: Fair General Adult HPI - General Chief complaint: ED Abdominal Pain Stated complaint: "abnormal ultrasound results" sent skocik Time Seen by Provider: 12/12/17 16:40 Source: patient, family Mode of arrival: private vehicle Limitations: no limitations - History of Present Illness Pain Scale: 8 - Related Data Home Medications Medication Instructions Recorded Confirmed Norgestimate-Ethinyl Estradiol 1 tab PO DAILY 12/12/17 12/12/17 [Sprintec 28 Day Tablet] Allergies Allergy/AdvReac Type Severity Reaction Status Date / Time No Known Allergies Allergy Verified 06/07/17 08:31 Constitutional: Reports: chills, weakness. Denies: fever Cardiovascular: Denies: chest pain, palpitations Respiratory: Denies: cough, dyspnea Gastrointestinal: Reports: as per HPI, abdominal pain, nausea, vomiting, diarrhea. 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 - Social History Smoking Status: Current every day smoker Smokeless Tobacco Status: No Alcohol use: Reports: none Drug use: Reports: none Physical Exam - General Limitations: no limitations General appearance: alert, in no apparent distress Course Vital Signs Temperature 98.6 F 12/12/17 16:36 Pulse Rate 118 12/12/17 16:36 Respiratory Rate 18 12/12/17 16:36 Blood Pressure 138/91 12/12/17 16:36 O2 Sat by Pulse Oximetry 98 12/12/17 16:36 Temperature 98.6 F 12/12/17 16:36 Pulse Rate 118 12/12/17 16:36 Respiratory Rate 18 12/12/17 16:36 Blood Pressure 138/91 12/12/17 16:36 O2 Sat by Pulse Oximetry 98 12/12/17 16:36 Oxygen Delivery Oxygen Delivery Room Air Medical Decision Making - Lab Data Result diagrams: 12/12/17 16:51 Lab Results 12/12/17 12/12/17 12/12/17 Range/Units 16:51 17:23 17:24 WBC 10.0 (4.3-11.1) K/mcL RBC 4.39 (3.82-4.97) M/mcL Hgb 13.5 (11.5-15.4) g/dL Hct 39.0 (35.3-44.9) % MCV 88.8 (83.0-100.0) fL MCH 30.8 (28.0-33.3) pg MCHC 34.6 (31.6-35.5) g/dL RDW 13.1 (11.5-14.5) % Plt Count 279 (140-400) K/mcL MPV 11.4 (9.4-12.4) fL Immature Gran % 0.2 (0-4) % Seg Neutrophils % 63.0 % Lymphocytes % 30.5 % Monocytes % 3.9 % Eosinophils % 2.0 % Basophils % 0.4 % Neutrophils # 6.3 (1.6-8.9) K/mcL Lymphocytes # 3.0 (0.6-4.6) K/mcL Monocytes # 0.4 (0.0-1.3) K/mcL Eosinophils # 0.2 (0.0-0.6) K/mcL Basophils # 0.0 (0.0-0.2) K/mcL Lactic Acid 0.8 (0.5-2.2) mmol/L Blood Type O POSITIVE Antibody Screen NEGATIVE Attestation Statement - Attestation Attestation: I examined this patient and my medical decision-making was reviewed with the Resident Physician. I agree with the documented findings, disposition and treatment plan as described except to the extent set forth below. Presentation female presents ED because right upper quadrant abdominal pain. She has had pain for the past 5 days with no measured fevers. Complains of increasing pain with food. Has had milder version of the same pain in the past but never to this severity. Her PCP sent her for ultrasound today and that she was referred to the emergency department because of abnormal findings. It was reported that she had emphysematous cholecystitis. Denies chest pain or dyspnea. No lower abdominal pain. Last menstrual period was 3 weeks ago. No dysuria, hematuria or polyuria. Well-appearing female in no apparent distress. She does appear comfortable. Oropharynx clear mucous membranes membranes dry. Neck is supple. Chest is clear to auscultation bilateral. Cardiac exam is tachycardic, regular. Abdomen with moderate tenderness in the right upper abdomen and epigastrium. No CVA tenderness. Lower abdomen nontender. Extremities warm and dry. She was given aggressive IV hydration with saline and lactated Ringer's. Pain control. Reading of the ultrasound was confirmed and she was started on IV antibiotics. Case discussed with on-call surgery Dr. Brooke who evaluated the patient in the emergency department and will admit to his service with plans of going to surgery tomorrow.
[2017-12-12] MEDS ORDERED: *HR* FentaNYL (PF) 100 MCG/2 ML VIAL IVP ONE (18:24)
[2017-12-12] MEDS ORDERED: Ringers Solution, Lactated 1,000 ML IVC ONE (18:24)
[2017-12-12 18:55] LABS: Alanine Aminotransferase 14 Units/L (7-52); Albumin/Globulin Ratio 1.7 (1.1-2.2); Alkaline Phosphatase 72 Units/L (34-104); Aspartate Amino Transferase 14 Units/L (13-39); BUN/Creatinine Ratio 13 (6-26); Bilirubin,Direct 0.2 mg/dL (0.0-0.2); Bilirubin,Indirect 0.2 mg/dL (0.0-1.2); Bilirubin,Total 0.4 mg/dL (0.3-1.0); Blood Urea Nitrogen 11 mg/dL (6-20); Calcium 8.9 mg/dL (8.6-10.3); Carbon Dioxide 22 mEq/L (23-29); Chloride 109 mEq/L (98-107); Globulin 2.4 g/dL (2.4-3.5); Glucose 85 mg/dL (70-105); Osmolality,Calculated 283 (280-300); Potassium 4.3 mEq/L (3.5-5.1); Sodium 137 mEq/L (136-145); Total Protein 6.4 g/dL (6.4-8.9); eGFR For African Americans > 60 (> 60); eGFR For Non-African Americans > 60 (> 60)
--- NOTE | 2017-12-12 19:02 | General Surg History&Physical ---
Date of Encounter: 12/12/17 Time of Encounter: 18:00 Assessment and Plan (1) Cholecystitis Current Visit: Yes Status: Acute The assessment and plan as outlined above was discussed with the patient and/or family members who expressed understanding and agreement. All questions were answered. Acute cholecystitis and cholelithiasis. We will plan treatment with IV hydration and antibiotics followed by cholecystectomy. I discussed the risks and benefits with her and she understands and wishes to proceed. History of Present Illness Chief complaint: Right upper quadrant pain HPI: Ms. Quiroz is a 27 year old female Who has had right upper quadrant pain since Friday. She sought evaluation on Friday in the emergency department. An ultrasound of the right upper quadrant demonstrated cholelithiasis. Laboratory testing was normal. She was sent home for convalescent evaluation. However, she failed to resolve her pain and the right upper quadrant pain excellent worsened. She had both nausea and vomiting. She was taking Advil. She denied any jaundice. She has not previously had abdominal surgery she return to the primary care physician who ordered a repeat ultrasound. The ultrasound demonstrated cholelithiasis and thickened gallbladder wall and was suggestive of emphysematous cholecystitis. I personally reviewed the ultrasound images, I do not see evidence for emphysematous cholecystitis but certainly she does have acute cholecystitis with thickened gallbladder wall and pericholecystic fluid. I have recommended admission to the hospital with treatment of antibiotics followed by cholecystectomy. Past Med Surg Social Fam HX - Past Medical History Medical history: no medical history, other Psychiatric history: no psych history - Past Surgical History Surgical History: other - Social History Smoking Status: Current every day smoker Smokeless Tobacco Status: No Alcohol use: none Drug use: none - Family History Father Adopted: No Living Status: Still Living Hx Family Cardiac Disorders: Yes (htn) Hx Family Respiratory Disorders: No Hx Family Cancer: No Hx Family GI Disorders: No Hx Family Endocrine Disorder: No Hx Family Neuromuscular Disorders: No Hx Family Neurologic Disorders: No Hx Family HEENT Disorders: No Hx Family Autoimmune Disorders: No Medications and Allergies Norgestimate-Ethinyl Estradiol [Sprintec 28 Day Tablet] 1 tab PO DAILY 12/12/17 [History] 3 Allergy/AdvReac Type Severity Reaction Status Date / Time No Known Allergies Allergy Verified 06/07/17 08:31 Review of Systems All systems PM: The remainder of the systems were reviewed and are negative General Surgery Exam Initial Vital Signs Temp Pulse Resp BP Pulse Ox 98.6 F 118 18 138/91 98 12/12/17 16:36 12/12/17 16:36 12/12/17 16:36 12/12/17 16:36 12/12/17 16:36 - General physical appearance well developed, well nourished, no distress - Neck no masses, no bruits, trachea midline, no lymphadectomy, no venous distension - Respiratory normal expansion, normal respiratory effort, clear to percussion, clear to auscultation - Cardiovascular Cardiovascular exam: Present: RRR, 15, 16 - Abdomen Abdomen general surgery: Present: tender, guarding Abdominal Tenderness: Present: RUQ - Neurologic Present: CN 2-12 grossly intact, normal coordination, normal sensation - Psychiatric Psychiatric general surgery: Present: appropriate, oriented to person, oriented to place, oriented to time, speech is normal, memory intact Results - Labs 12/12/17 16:51 12/12/17 18:13 Abnormal lab results Chloride 109 mEq/L (98-107) H 12/12/17 18:13 Carbon Dioxide 22 mEq/L (23-29) L 12/12/17 18:13 All other labs normal. - Imaging US - abdomen: image reviewed (I personally reviewed the images. Although the radiologist reports possible emphysematous cholecystitis I think the findings are more consistent with acute cholecystitis without necrosis. She will be treated with antibiotics and plan cholecystectomy in the next 24 hours)
[2017-12-12] MEDS ORDERED: 0.9 % Sodium Chloride 1,000 ML IVC SCH (19:15)
[2017-12-12] MEDS: Ondansetron 4 MG/2 ML VIAL IVP PRN (19:30)
[2017-12-12] MEDS: *HR* OxyCODONE/APAP 10/325 TABLET PO PRN (20:52)
[2017-12-12] MEDS: OXYCODONE Oral CONC 10 MG/0.5 ML ORAL.SYG SL PRN (23:29)
[2017-12-12] MEDS: cefOXitin 2,000 MG in Water for inj. (sterile) 20 ML 10 ML IVP SCH (23:30)
[2017-12-13] MEDS: *HR* OxyCODONE/APAP 10/325 TABLET PO PRN ×2 (03:36→11:42)
[2017-12-13] MEDS ORDERED: *HR* Heparin 5,000 UNIT/ML VIAL SQ SCH ×2 (06:00→18:00)
[2017-12-13] MEDS: OXYCODONE Oral CONC 10 MG/0.5 ML ORAL.SYG SL PRN (06:46)
[2017-12-13] MEDS: Ondansetron 4 MG/2 ML VIAL IVP PRN (06:46)
--- NOTE | 2017-12-13 06:53 | Anesthesia Evaluation PreOp ---
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 HX Other Medical History: Other (Obese) Anesthesia History: No Prior Anesthetic Complications : No Test: Negative Alcohol Use: none Drug use: none Medications and Allergies Norgestimate-Ethinyl Estradiol [Sprintec 28 Day Tablet] 1 tab PO DAILY 12/12/17 [History] 3 Allergy/AdvReac Type Severity Reaction Status Date / Time No Known Allergies Allergy Verified 06/07/17 08:31 - Meds/Allergy Pre-op Review Medications Reviewed: Yes Allergies Reviewed: Yes Beta Blockers on Current Med List: No Anesthesia Results - Labs 12/12/17 16:51 12/12/17 18:13 Laboratory Tests 12/10/17 12/12/17 12/12/17 23:54 16:51 18:13 Hgb 13.5 Hct 39.0 Plt Count 279 Sodium 137 Potassium 4.3 BUN 11 Creatinine 0.88 Urine Test Negative - Imaging EKG: report reviewed (Sinus Tach) Anesthesia Exam Vital Signs/O2 Sat/Glucose, Most Current Temp Pulse Resp BP Pulse Ox 12/13/17 06:43 98.0 F 75 15 108/73 100 12/13/17 03:19 98.1 F 66 16 102/66 97 Height: 5'7 Weight: 245 lbs NPO (# of Hours): MN Pain Scale: 2 - HEENT Pupil (Motor): Pupils equal, EOMI Mallampati: II Teeth: Normal Oral Opening: Greater than 3 - STAFF ELECTRICAL ENGINEER LOC: Oriented STAFF ELECTRICAL ENGINEER Motor: Normal RUE, Normal LUE, Normal RLE, Normal LLE, Normal Face STAFF ELECTRICAL ENGINEER Sensory: Normal: RUE, LUE, RLE, LLE, Face - Cardiac Rhythm: Regular Murmur: None JVD: No Carotid Bruit: No - Pulmonary Breath Sounds: bilateral Clear Respiratory Effort: Symmetrical Anesthesia Assess/Plan ASA Score: 2 Modified Analy Scale for Level of Consciousness: Cooperative, oriented, and tranquil Anesthetic Plan: General Monitoring Plan: Standard Monitors Recovery Plan: PACU (Discussed GA, agrees to proceed)
[2017-12-13] MEDS ORDERED: Albuterol 2.5 MG/3 ML NEBULIZER IH ONE (06:54)
[2017-12-13] MEDS ORDERED: *HR* Propofol 200 MG/20 ML VIAL IVP ONE (07:13)
[2017-12-13] MEDS ORDERED: *HR* FentaNYL (PF) 100 MCG/2 ML VIAL ONE (07:13)
[2017-12-13] MEDS ORDERED: *HR* Midazolam HCl 2 MG/2 ML VIAL ONE (07:13)
[2017-12-13] MEDS ORDERED: *HR* Cisatracurium 10 MG/5 ML VIAL IV ONE (07:14)
[2017-12-13] MEDS ORDERED: *HR* Succinylcholine 200 MG/10 ML VIAL IVP ONE (07:14)
[2017-12-13] MEDS ORDERED: Lidocaine -MPF 2% 2 ML VIAL ONE (07:14)
[2017-12-13] MEDS ORDERED: CefOXitin 1,000 MG VIAL ONE (07:23)
[2017-12-13] MEDS ORDERED: Ondansetron 4 MG/2 ML VIAL IVP ONE (07:28)
[2017-12-13] MEDS ORDERED: *HR* OxyCODONE Immed Rel 5 MG TABLET PO PRN (07:28)
[2017-12-13] MEDS ORDERED: MORPHINE SUL Oral CONC 10 MG/0.5 ML ORAL.SYG SL PRN (07:28)
[2017-12-13] MEDS ORDERED: Acetaminophen IV 1,000 MG/100 ML INFUS..BTL ONE (07:34)
[2017-12-13] MEDS ORDERED: CefOXitin 2,000 MG VIAL ONE (07:52)
[2017-12-13] MEDS: cefOXitin 2,000 MG in Water for inj. (sterile) 20 ML 10 ML IVP SCH (08:00)
[2017-12-13] MEDS ORDERED: Isovue-300 50 ML VIAL IVP ONE (08:12)
[2017-12-13] MEDS ORDERED: Ketorolac 30 MG/ML VIAL ONE (08:14)
[2017-12-13] MEDS ORDERED: Ondansetron 4 MG/2 ML VIAL ONE (08:25)
[2017-12-13] MEDS ORDERED: Dexamethasone 4 MG/ML VIAL ONE (08:25)
--- NOTE | 2017-12-13 09:00 | Operative Note ---
Date of procedure: 12/13/17 Pre-op diagnosis: Cholelithiasis and recalcitrant biliary colic, acute cholecystitis Post-op diagnosis: same Procedure: laparoscopic cholecystectomy, cholangiogram Anesthesia: HEBERA Surgeon: Wilfrido Brooke Was there an credit control assistant present: No Estimated blood loss (cc): 10 Specimen: gallbladder and contents Condition: stable Disposition: PACU Procedure in Detail: Laparoscopic cholecystectomy and intraoperative cholangiogram Operative procedure after informed consent and appropriate patient identification timeout the patient was taken to the major operating suite and placed supine position given adequate general endotracheal anesthesia the abdomen is prepped and draped in sterile fashion utilizing ChloraPrep standard draping techniques timeout was taken patient is identified. I made a vertical midline incision below the umbilicus dissected down to level of fascia there are 2 traction stitches placed in the abdominal cavity was entered visually. A Lane trocar was placed in the abdomen and the abdomen was insufflated to 15 mmHg pressure CO2 the gallbladder was visualized. A placement 11 port in the subxiphoid area and 2 5 mm ports in the subcostal area. The gallbladder was grasped and elevated. A variety of blunt and sharp dissection techniques were used to isolate the cystic duct and cystic artery. The cystic artery was controlled with 2 surgical clips proximally and one distally and it was divided I placed a surgical clip on the neck the gallbladder and obtained an intraoperative cholangiogram using 10 mL of Isovue. Intraoperative cholangiogram was normal. The cholangiocatheter was removed and the cystic duct was controlled with 2 surgical clips proximally and was divided the gallbladder was removed from the gallbladder fossae using electrocautery. The gallbladder was removed through the #11 port site. I replaced the #11 port and irrigated with copious amounts of antibiotic containing solution. There is no evidence of bleeding or bile leak. All trochars were removed. Fascia was closed with 0 Vicryl skin with 2-0 and 4-0 Vicryl she tolerated the procedure well and was transferred to recovery in stable condition
[2017-12-13] MEDS ORDERED: *HR* Promethazine 25 MG/ML VIAL IVP PRN (09:06)
[2017-12-13] MEDS ORDERED: *HR* Promethazine 25 MG/ML VIAL ONE (09:08)
[2017-12-13] MEDS: *HR* FentaNYL (PF) 100 MCG/2 ML VIAL IVP PRN ×2 (09:13→09:22)
[2017-12-13] MEDS ORDERED: *HR* Meperidine 25 MG/ML SYRINGE IVP PRN (09:36)
[2017-12-13] MEDS ORDERED: *HR* Meperidine 25 MG/ML SYRINGE ONE (09:38)
--- NOTE | 2017-12-13 10:43 | Discharge Summary ---
<Shawn Rose - Last Filed: 12/13/17 12:19> Orders not resulted at time of discharge: Pending orders 12/13/17 08:44 Surgical Pathology [PTH] Routine Date of Encounter: 12/13/17 Time of Encounter: 12:00 - Discharge Diagnosis (1) Cholecystitis Priority: Primary Status: Acute General Surgery Exam Initial Vital Signs Temp Pulse Resp BP Pulse Ox 98.6 F 118 18 138/91 98 12/12/17 16:36 12/12/17 16:36 12/12/17 16:36 12/12/17 16:36 12/12/17 16:36 - General physical appearance well developed, well nourished, no distress - Eyes normal ocular movement - ENT normal mucosa - Neck trachea midline - Respiratory normal expansion, normal respiratory effort, clear to auscultation - Cardiovascular Cardiovascular exam: Present: RRR, no murmurs/rubs/gallops - Abdomen Abdomen general surgery: Present: bowel sounds present, soft, tender ( appropriate post surgery tenderness) - Incision Incision: Present: clean and dry, intact - Integumentary Integumentary general surgery: Present: warm and dry - Neurologic Present: CN 2-12 grossly intact - Musculoskeletal Present: normal posture - Psychiatric Psychiatric general surgery: Present: A&Ox3, appropriate, speech is normal, memory intact - Hospital Course Hospital course: Ms. Quiroz is a 27 year old female who presented to [facility] c/o RUQ pn since Friday. Sought treatment on Friday and was dx with cholelithiasis, sent home with pain medication. Pain worsened yesterday so came back in. Patient's U/S then showed cholecystitis in addition to cholelithiasis. There was some concern for emphesema in the gall bladder but images reviewed by Dr. Brooke and he does not believe that to be the case. Patient was taken for Lap choly this morning . Patient tolerated the procedure well. Patient is tolerating Clear liquid diet and has ambulated and urinated on her own. She was deemed fit for discharge. - Time Spent with Patient Total time spent providing and/or coordinating discharge services: Greater than 30 minutes - Discharge Medications Prescriptions: OxyCODONE/APAP 5/325 [Percocet 5/325 MG] 1 each PO Q6HR PRN 6 Days #24 tablet PRN Reason: Breakthrough Pain Promethazine [Phenergan] 25 mg PO Q6HR PRN #15 tablet PRN Reason: Nausea And Vomiting Docusate [Colace] 100 mg PO BID #30 capsule Ibuprofen 800 mg PO Q8H #42 tablet Home Medications: Norgestimate-Ethinyl Estradiol [Sprintec 28 Day Tablet] 1 tab PO DAILY 12/12/17 [History] Docusate [Colace] 100 mg PO BID #30 capsule 12/13/17 [Rx] Ibuprofen 800 mg PO Q8H #42 tablet 12/13/17 [Rx] OxyCODONE/APAP 5/325 [Percocet 5/325 MG] 1 each PO Q6HR PRN 6 Days #24 tablet [Rx] Promethazine [Phenergan] 25 mg PO Q6HR PRN #15 tablet 12/13/17 [Rx] Allergies/Adverse Reactions: 3 Allergy/AdvReac Type Severity Reaction Status Date / Time No Known Allergies Allergy Verified 06/07/17 08:31 Date of admission: 12/12/17 19:04 Primary care physician: Dre Andrade, Discharging clinician: Shawn Rose Anticipated date of discharge: 12/13/17 Labs on day of discharge: Labs from last 24 hours 12/13/17 05:37 POC Glucose 82 - Impressions ITS Impressions Cholangiogram,Operative 12/13/17 07:03 IMPRESSION: Refer to surgical report. D/ / 12/13/2017 08:47:31 Puma Means MD / glo Interpreting Provider: Puma Means MD - Patient Status Disposition: Home, Self-Care Condition: Good Functional capacity at discharge: independent ambulation Overall status at discharge: patient is progressing back to baseline - Discharge Instructions Follow Up With: Dre Andrade DO [Primary Care Provider] - Additional Instructions: 1. No pushing, pulling, or lifting greater than 15 lbs for 2 weeks. 2. You may shower beginning today, but no tub baths, soaking, or swimming for 2 weeks. 3. You may resume driving when you are off narcotics and are safe to react in a car. 4. Take ibuprofen every 8 hours for discomfort. If this does not relieve discomfort, you may take the as needed Percocet. Take narcotics as directed. Do not take more narcotics then directed and do not share your narcotics with any other person. Do not drink alcohol while on narcotics. 5. Take stool softeners (Colace) or a water based laxative (Miralax) while taking narcotics. You may hold for loose stools. 6. Report any fevers greater than 100.5F, increase abdominal discomfort, drainage that looks like pus, increased redness or pain at the surgical site, or any vomiting. 7. Report any pain in the calves, shortness of breath, or rapid heartbeat. 8. Follow-up in the office as directed. - Diet and Activity Activity: resume usual activities as tolerated Diet: advance to your usual diet <Wilfrido Brooke - Last Filed: 12/14/17 11:19> Orders not resulted at time of discharge: Pending orders 12/13/17 08:44 Surgical Pathology [PTH] Routine Date of Encounter: 12/14/17 - Discharge Diagnosis (1) Cholecystitis Status: Acute General Surgery Exam Initial Vital Signs Temp Pulse Resp BP Pulse Ox 98.6 F 118 18 138/91 98 12/12/17 16:36 12/12/17 16:36 12/12/17 16:36 12/12/17 16:36 12/12/17 16:36 - Hospital Course Hospital course: Ms. Quiroz is a 27 year old female - Time Spent with Patient Total time spent providing and/or coordinating discharge services: Date of admission: 12/12/17 19:04 Primary care physician: Dre Andrade, - Impressions ITS Impressions Cholangiogram,Operative 12/13/17 07:03 IMPRESSION: Refer to surgical report. D/ / 12/13/2017 08:47:31 Puma Means MD / glo Interpreting Provider: Puma Means MD - Attending Attestation I examined this patient and my medical decision-making was reviewed with the Resident Physician. I agree with the documented findings, disposition and treatment plan as described except to the extent set forth below. The patient is seen and evaluated with rest and after laparoscopic cholecystectomy. She is doing quite well. She is ready for discharge home. I will see her back in 2 weeks. Wilfrido BROOKE MD FACS
[2017-12-13] MEDS ORDERED: 0.9 % Sodium Chloride 1,000 ML IVC SCH (10:46)
[2017-12-13] MEDS ORDERED: Ondansetron 4 MG/2 ML VIAL IVP PRN (10:46)
[2017-12-13] MEDS ORDERED: Simethicone 80 MG TAB.CHEW PO ONE (11:21)
[2017-12-13 13:51] VITALS: BP 107/74
[2017-12-13] MEDS ORDERED: cefOXitin 2,000 MG in Water for inj. (sterile) 20 ML 10 ML IVP SCH (16:00)
== END 2017-12-13 14:13 | disposition home or self-care (01) | DRG 419 ==
LOC: EMEROO 16:33 → 3ANU 16:33
PROVIDERS: ADMIT Internal Medicine; ATTEND Internal Medicine